=== PATIENT | female | born 1980 | race Caucasian/White ===

== ENCOUNTER 2017-03-10 22:32 | Emergency (ER) | payer OTHER ==
[~2017-03-10] VITALS: Ht 154.9 cm; Wt 61.1 kg
[~2017-03-10 22:32] MED LIST: CIPR-255 PO; HYDR-5688 PO; ONDA4TAB46 PO
[2017-03-10 22:35] VITALS: TEMP 36.5; Ht 154.9 cm; Wt 61.1 kg
--- NOTE | 2017-03-10 23:10 | EMERGENCY ROOM VISIT NOTE ---
History Report prepared by Frandy: Melva Dubon Under the Supervision of: Dr. Ruddy Gutierrez M.D. First contact with patient: 22:38 Chief Complaint: CARDIAC ASSESSMENT Stated Complaint: HARD TIME BREATHING,HEART PALIPITATION & SKIPPING History of Present Illness The patient is a 36 year old female who presents to the Emergency Room with complaints of worsening heart palpitations that started 3 days ago. The patient rates her discomfort a 4/10 in severity. The patient states on she felt like her heart was skipping a beat. She notes that it got worse today and was happening more frequently. The patient states that as the evening went on today, she noticed it felt like it was skipping more than one beat. She notes that she has been experiencing shortness of breath and a cough with the palpitations. She states that the cough is more prominent right before the palpitations start. She notes that she has some pain in her sternum and lower back. The patient states that she has fibromyalgia so it is hard to tell the difference in the pain. The patient denies having a history of blood clots, thyroid problems, or diabetes. She notes that her grandmother had a history of blood clots in her legs. She denies taking any long trips recently. The patient states that she has been taking clozapine for anxiety for 8 months. She notes that on when she picked up more medication, she noticed it was a different color pill. The pharmacist told her the ingredients were the same but the busboy changed. Source of History: patient Onset: 3 days ago Position: other (palpitations) Symptom Intensity: 4/10 Quality: other (palpitations) Timing: worsening Associated Symptoms: + cough, + chest pain (sternum), + SOB, + back pain Review of Systems See HPI for pertinent positives & negatives. A total of 10 systems reviewed and were otherwise negative. Past Medical & Surgical Hysterectomy. Social History Smoking Status: Never Smoker Drug Use: none Marital Status: Housing Status: lives with family Current/Historical Medications Scheduled Clonazepam (Klonopin), 0.5 MG PO BID Allergies Coded Allergies: Acetaminophen (Verified Adverse Reaction, Unknown, nausea, 03/10/17) Metoclopramide (Verified Adverse Reaction, Unknown, Panic, 03/10/17) Oxycodone (Verified Adverse Reaction, Unknown, nausea, 03/10/17) Physical Exam Vital Signs Date Time Temp Pulse Resp B/P (MAP) Pulse Ox O2 Delivery O2 Flow Rate FiO2 03/11/17 00:57 109/78 03/11/17 00:46 88 23 98 03/11/17 00:41 114/74 03/11/17 00:22 90 17 98 03/11/17 00:07 91 16 97 03/11/17 00:01 117/74 03/10/17 23:37 85 19 98 03/10/17 23:32 86 14 97 03/10/17 23:31 107/69 03/10/17 23:17 81 14 98 Room Air 03/10/17 23:16 71 03/10/17 23:11 115/66 03/10/17 23:11 74 03/10/17 22:35 36.5 88 18 130/79 97 Room Air Physical Exam GENERAL: Patient is in no acute distress. HEENT: No acute trauma, normocephalic atraumatic, mucous membranes moist, no nasal congestion, no scleral icterus. NECK: No stridor, no adenopathy, no meningismus, trachea is midline. LUNGS: Clear to auscultation bilaterally, no wheeze, no rhonchi, breath sounds equal. HEART: Without murmurs gallops or rubs, regular rate and rhythm. CHEST: Tender to lower mid sternum. ABDOMEN: Soft, nontender, bowel sounds positive, no hernias, no peritonitis. EXTREMITIES: No cyanosis or edema, full range of motion of all the joints without pain or difficulty, no signs for acute trauma. NEUROLOGIC: Oriented x 3, no acute motor or sensory deficits, no focal weakness. SKIN: No rash, no jaundice, no diaphoresis. Medical Decision & Procedures ER Provider Diagnostic Interpretation: Radiology results as stated below per my review and radiologist interpretation: CHEST X-RAY: No cardiomegaly, mediastinal widening, or pneumothorax. CTA CHEST: No evidence of acute pulmonary embolism. Region of lung hypoattenuation at medial aspect of the right lung base is most likely related to air trapping. No evidence of acute parenchymal lung disease. No aortic aneurysm or dissection. Heart is not enlarged. No adenopathy. No pleural effusion or pneumothorax. Laboratory Results 03/10/17 23:10 03/10/17 23:10 Test 03/10/17 23:10 03/10/17 23:17 Red Blood Count 4.44 M/uL (4.2-5.4) Mean Corpuscular Volume 87.4 fL (80-100) Mean Corpuscular Hemoglobin 30.4 pg (25-34) Mean Corpuscular Hemoglobin Concent 34.8 g/dl (32-36) RDW Standard Deviation 39.1 fL (36.4-46.3) RDW Coefficient of Variation 12.2 % (11.5-14.5) Mean Platelet Volume 10.1 fL (7.4-10.4) Anion Gap 7.0 mmol/L (3-11) Est Creatinine Clear Calc Drug Dose 87.4 ml/min Estimated GFR () 118.6 Estimated GFR (Non- 102.3 BUN/Creatinine Ratio 20.5 (10-20) Calcium Level 9.0 mg/dl (8.5-10.1) Magnesium Level 2.3 mg/dl (1.8-2.4) Total Bilirubin 0.3 mg/dl (0.2-1) Aspartate Amino Transf (AST/SGOT) 17 U/L (15-37) Alanine Aminotransferase (ALT/SGPT) 19 U/L (12-78) Alkaline Phosphatase 73 U/L (45-117) Troponin I < 0.015 ng/ml (0-0.045) Total Protein 7.9 gm/dl (6.4-8.2) Albumin 4.0 gm/dl (3.4-5.0) Globulin 3.9 gm/dl (2.5-4.0) Albumin/Globulin Ratio 1.0 (0.9-2) Thyroid Stimulating Hormone (TSH) 0.959 uIu/ml (0.300-4.500) Bedside D-Dimer > 450 ng/mlFEU (0-450) Laboratory results reviewed by me. Medications Administered Medications (Trade) Dose Ordered Sig/Cande Route Start Time Stop Time Status Last Admin Dose Admin Potassium Chloride (Klor-Con M10) 40 meq NOW STAT PO 03/11/17 00:44 03/11/17 00:45 DC 03/11/17 00:54 40 MEQ ECG Indication: palpitations Rate (beats per minute): 73 Rhythm: normal sinus Findings: no acute ischemic change, no ectopy ED Course 8: The patient was evaluated in room C7. A complete history and physical exam was performed. 2333: I reassessed the patient. She will need a CT since her D-dimer was positive. 0044: Potassium Chloride 40 meq PO. 0045: Reevaluated the patient. Discussed results and discharge instructions: She verbalized understanding and agreement. The patient is ready for discharge. Medical Decision Differential diagnosis: Palpations, anemia, dysrhythmia, cardiomegaly, thyroid disorder, costochondritis , medication reaction, electrolyte abnormality. There is no leukocytosis or concerning anemia. Potassium slightly low, no kidney failure. No hepatitis. The patient appears to be in a euthyroid state. Chest film shows no cardiomegaly, pneumonia or mediastinal widening. EKG shows a normal sinus rhythm, no acute ischemia. Cardiac enzyme testing times one is not consistent with acute cardiac injury. On the monitor, she had occasional PVCs. D-dimer testing was elevated. Chest CT shows no PE, no evidence for aortic dissection. The patient presents with palpitations. She is having PVCs based on her monitor results. I think this is why she feels the missing beats. The patient was given a dose of oral potassium as her potassium was slightly low. The patient appears to have musculoskeletal chest pain-the pain is reproducible on exam. She is having palpitations/PVCs. Her illness could be viral, she may be having extra beats secondary to the slightly low potassium. She is concerned that the change in her brand of clonazepam may be responsible as she started with symptoms the day the brand switched. The patient is being discharged with outpatient follow-up. She will talk to the pharmacy about a different brand of clonazepam. She will increase her potassium dosing at home for the next few days. She will talk with her doctors office about a possible cardiology referral and/or Holter monitor. If things are worsening, she can return. She was reassured. Medication Reconcilliation Current Medication List: was personally reviewed by me Blood Pressure Screening Patient's blood pressure: Normal blood pressure Impression Primary Impression: Palpitations Additional Impression: Hypokalemia Scribe Attestation The scribe's documentation has been prepared under my direction and personally reviewed by me in its entirety. I confirm that the note above accurately reflects all work, treatment, procedures, and medical decision making performed by me. Departure Information Dispostion Home / Self-Care Referrals Simeon Coppola D.O. (PCP) Patient Instructions My [facility] Additional Instructions double up the potassium dose for 3-4 days talk with pharmacy about a different brand of the Klonopin talk with the desirae md about a recheck and possible holter monitor return for worsening symptoms heart and lung testing today was all ok potassium value was slightly low Problem Qualifiers
[2017-03-10 23:22] LABS: HEMATOCRIT 38.8 % (37-47); MEAN CELL VOLUME 87.4 fL (80-100); MEAN CORPUSCULAR HEMOGLOBIN 30.4 pg (25-34); MEAN CORPUSCULAR HGB CONC 34.8 g/dl (32-36); MEAN PLATELET VOLUME 10.1 fL (7.4-10.4); PLATELET COUNT 236 K/uL (130-400); RED BLOOD COUNT 4.44 M/uL (4.2-5.4); WHITE BLOOD COUNT 9.14 K/uL (4.8-10.8)
[2017-03-10 23:41] LABS: ALT/SGPT 19 U/L (12-78); AST/SGOT 17 U/L (15-37); BLOOD UREA NITROGEN 16 mg/dl (7-18); BUN/CREATININE RATIO 20.5 (10-20); CARBON DIOXIDE 28 mmol/L (21-32); CHLORIDE 106 mmol/L (98-107); CREATININE 0.76 mg/dl (0.60-1.20); GLUCOSE 89 mg/dl (70-99); MAGNESIUM 2.3 mg/dl (1.8-2.4); POTASSIUM 3.4 mmol/L (3.5-5.1); SODIUM 140 mmol/L (136-145)
[2017-03-10] MEDS ORDERED: CLON0.5T3 PO (23:41)
[2017-03-10] MEDS ORDERED: OPTIRAY 320 IV PRN (23:45)
[2017-03-10 23:52] LABS: ALKALINE PHOSPHATASE 73 U/L (45-117); THYROID STIMULATING HORMONE 0.959 uIu/ml (0.300-4.500)
[2017-03-11] MEDS ORDERED: POTASSIUM CHLORIDE 10 MEQ TABCR PO STA (00:44)
[2017-03-11 00:46] VITALS: PULSE 88; O2SAT 98
[2017-03-11 00:57] VITALS: BP 109/78
--- NOTE | 2017-03-11 06:39 | DIAGNOSTIC IMAGING REPORT ---
CHEST ONE VIEW PORTABLE CLINICAL HISTORY: Atypical chest pain COMPARISON STUDY: 02/26/2016 FINDINGS: The cardiac and mediastinal contours are normal. There is no evidence of focal pulmonary consolidation. There is no evidence of failure. No pleural effusions are visualized.[ IMPRESSION: No active disease in the chest. Electronically signed by: Khurram Anderson M.D. 03/11/2017 6:38 AM Dictated Date/Time: 03/11/2017 6:38 AM
--- NOTE | 2017-03-11 07:07 | DIAGNOSTIC IMAGING REPORT ---
CT ANGIOGRAM OF THE CHEST CLINICAL HISTORY: Palpitations. COMPARISON STUDY: Chest x-ray dated 03/10/2017. TECHNIQUE: Following the IV administration of 81 cc of Optiray 320, CT angiogram of the chest was performed from the upper abdomen to the thoracic inlet utilizing the pulmonary embolus protocol. Images are reviewed in the axial, sagittal, and coronal planes. 3-D MIPS images are created and assessed. IV contrast was administered without complication. A dose lowering technique was utilized adhering to the principles of ALARA. CT DOSE: 155.16 mGy.cm FINDINGS: Thyroid: Imaged portions of the thyroid gland are normal in size and attenuation. Thoracic aorta: The thoracic aorta is normal in caliber and demonstrates bovine variant arch anatomy. No dissection is seen. Pulmonary vasculature: The pulmonary trunk is normal in caliber. There are no filling defects identified in main, lobar, or segmental pulmonary branches to suggest pulmonary embolus. Heart: The heart is normal in size and configuration, and without pericardial effusion. Lungs and pleural spaces: A 2 mm pleural-based nodule in the right upper lobe is seen on image #141. This is of doubtful significance in this age group. The trachea and central airways are clear. There is no airspace consolidation or pleural effusion. Minimal dependent hypoventilatory changes observed. Mild air trapping is seen at the medial right lung base. Mediastinum: There is no mediastinal lymphadenopathy. Kierra: Clear. Axillae: There is no axillary lymphadenopathy. Upper abdomen: Partially visualized upper abdominal viscera is within normal limits. Skeletal structures: No lytic or blastic bony lesions are seen. IMPRESSION: 1. There is no evidence of pulmonary embolus in the main, lobar, or segmental pulmonary arteries. 2. There is no airspace consolidation or pleural effusion. Electronically signed by: Ruddy Dasilva M.D. 03/11/2017 7:06 AM Dictated Date/Time: 03/11/2017 6:56 AM
== END 2017-03-11 01:01 | disposition home or self-care (01) ==
LOC: C.EDB 22:33 → C.EDC 03-11 01:01
DX: R00.2 Palpitations (principal); E87.6 Hypokalemia; I49.3 Ventricular premature depolarization; M79.7 Fibromyalgia; Z83.2 Family history of diseases of the blood and blood-forming organs and certain disorders involving the immune mechanism